=== PATIENT | female | born 1950 | race Caucasian/White ===

== ENCOUNTER 2023-12-08 13:24 | Emergency (ER) | payer MEDICARE, SELFPAY ==
[2023-12-08] MEDS ORDERED: Morphine 2 MG/ML VIAL ONE (14:05)
[2023-12-08] MEDS ORDERED: Bacitracin 1 PK ONE (14:56)
== END 2023-12-08 15:30 | disposition home or self-care (01) ==
LOC: NAV ERS 13:24
DX: S61.552A Open bite of left wrist, initial encounter (principal); S61.254A Open bite of right ring finger without damage to nail, initial encounter; S61.051A Open bite of right thumb without damage to nail, initial encounter; S51.852A Open bite of left forearm, initial encounter; S61.234A Puncture wound without foreign body of right ring finger without damage to nail, initial encounter; S61.031A Puncture wound without foreign body of right thumb without damage to nail, initial encounter; S61.532A Puncture wound without foreign body of left wrist, initial encounter; S51.832A Puncture wound without foreign body of left forearm, initial encounter; I25.2 Old myocardial infarction; W54.0XXA Bitten by dog, initial encounter
CPT/HCPCS: 96374; J2272